=== PATIENT | female | born 1995 | race American Indian/Alaskan Native ===

== ENCOUNTER 2016-06-12 14:43 | Emergency (ER) | payer MEDICAID ==
[2016-06-12 17:34] LABS: Hematocrit 36.8 % (30.3-42.9); Mean Corpuscular HGB Conc 33 % (30-34); Mean Corpuscular Hemoglobin 30 pg (28-32); Mean Corpuscular Volume 93 fl (79-97); Platelet Count 373 K/mm3 (140-440); Red Blood Count 3.98 M/mm3 (3.65-5.03); Red Cell Distribution Width 13.2 % (13.2-15.2); White Blood Count 11.5 K/mm3 (4.5-11.0)
[2016-06-12 17:35] LABS: Anion Gap 22 mmol/L; Blood Urea Nitrogen 11 mg/dL (7-17); Calcium 8.7 mg/dL (8.4-10.2); Carbon Dioxide 19 mmol/L (22-30); Chloride 97.9 mmol/L (98-107); Glucose 79 mg/dL (65-100); Sodium 135 mmol/L (137-145)
[2016-06-12 18:02] LABS: Bacteria,Urine 1+ /HPF (Negative); Bilirubin,Urine NEG (Negative); Blood,Urine NEG (Negative); Ketones,Urine 80 mg/dL (Negative); Leukocyte Esterase,Urine LG (Negative); Mucus,Urine 3+ /HPF; Nitrite,Urine NEG (Negative); Urobilinogen,Urine < 2.0 mg/dL (<2.0)
[2016-06-12 19:37] LABS: Anisocytosis 1+; Basophils % (Manual) 0 % (0.0-1.8); Blastocytes % (Manual) 0 %; Diff Status Complete; Eosinophils % (Manual) 0 % (0.0-4.3); Platelet Estimate Consistent w Auto
--- NOTE | 2016-06-12 21:21 | Ultrasound Report ---
FINAL REPORT EXAM: US OB \T\gt; = 14 WEEKS FETUS HISTORY: abd pain, preg COMPARISON: None available. TECHNIQUE: Several real-time grayscale and color Doppler images were obtained. FINDINGS: Single live IUP. Estimated gestational age 14 weeks 3 days. Estimated delivery date December 08, 2016. heart rate 176 beats per minute. BPD 14 weeks 4 days. Head circumference 14 weeks 4 days. Abdominal circumference 14 weeks 0 days. Femoral length 14 weeks 4 days. position vertex. Placenta location anterior. No placenta previa. The cervix is closed and measures 3.3 centimeters in length. Limited evaluation of structures due to early gestational age. IMPRESSION: Single live IUP. Estimated gestational age 14 weeks 3 days. Estimated delivery date December 08, 2016. Limited evaluation of structures due to early gestational age. No gross or placental abnormality demonstrated.
[2016-06-12] MEDS ORDERED: ZOFRAN IV ONE (22:01)
[2016-06-12] MEDS ORDERED: NACL 0.9% 1000 ML 1,000 ML IV ONE ×2 (22:01)
[2016-06-12] MEDS ORDERED: ROCEPHIN/NS 1 GM/50 ML 1 GM/50 ML BAG IV ONE (22:01)
--- NOTE | 2016-06-12 22:31 | Emergency Department Report ---
HPI - General Chief Complaint: Abdominal Pain Time Seen by Provider: 06/12/16 21:53 - HPI HPI: Room 26 The patient is a 20-year-old female presenting with chief complaint of abdominal pain nausea vomiting diarrhea. The patient is brought 14 weeks states that her symptoms began this morning at 11:00. The patient states she has suprapubic pain. The pain bilateral sides of her abdomen. Patient denies dysuria, hematuria or vaginal bleeding. The patient describes the pain as sharp and cramping in nature. Patient denies history of fever. The patient states her last meal included possible she ingested this Hospital for the full course of her symptoms. The patient admits to nausea vomiting and diarrhea for 1 day. When asked how she is feeling currently the patient replies "alright." Location: [see above] Duration: [see above] Quality: Sharp/Cramping Severity: Moderate Modifying factors: [see above] Context: [see above] Mode of transportation: [not driving] ED Past Medical Hx - Past Medical History Previous Medical History?: No - Surgical History Past Surgical History?: No - Family History Family history: no significant - Social History Smoking Status: Never Smoker Substance Use Type: None - Medications Home Medications: Home Medications Medication Instructions Recorded Confirmed Last Taken Type Nitrofurantoin [place]/M-Cryst 100 mg PO Q12HR #14 capsule 06/12/16 Unknown Rx [Macrobid CAP] ED Review of Systems ROS: Stated complaint: ABD PAIN/14WKS Other details as noted in HPI Comment: All other systems reviewed and negative Constitutional: denies: chills, fever Eyes: denies: eye pain, eye discharge, vision change ENT: denies: ear pain, throat pain Respiratory: denies: cough, shortness of breath, wheezing Cardiovascular: denies: chest pain, palpitations Endocrine: no symptoms reported Gastrointestinal: abdominal pain, nausea, vomiting, diarrhea Genitourinary: denies: urgency, dysuria, discharge Musculoskeletal: denies: back pain, joint swelling, arthralgia Skin: denies: rash, lesions Neurological: denies: headache, weakness, paresthesias Psychiatric: denies: anxiety, depression Hematological/Lymphatic: denies: easy bleeding, easy bruising Physical Exam - Physical Exam Vital Signs: Vital Signs 06/12/16 16:22 Temperature 98.5 F Pulse Rate 92 H Respiratory 20 Rate Blood Pressure 104/56 O2 Sat by Pulse 97 Oximetry Physical Exam: GENERAL: The patient is well-developed well-nourished female lying on stretcher not appearing to be in acute distress. [] HEENT: Normocephalic. Atraumatic. Extraocular motions are intact. NECK: Supple. No meningitic signs are noted. There is no adenopathy noted. CHEST/LUNGS: Clear to auscultation. There is no respiratory distress noted. HEART/CARDIOVASCULAR: Regular. There is no tachycardia. There is no gallop rub or murmur. ABDOMEN: Abdomen is soft, with mild suprapubic discomfort to palpation. Patient has normal bowel sounds. SKIN: There is no rash. There is no edema. There is no diaphoresis. NEURO: The patient is awake, alert, and oriented. The patient is cooperative. The patient has normal speech MUSCULOSKELETAL: There is no CVA tenderness. There is no evidence of acute injury. ED Course Vital Signs 06/12/16 16:22 Temperature 98.5 F Pulse Rate 92 H Respiratory 20 Rate Blood Pressure 104/56 O2 Sat by Pulse 97 Oximetry ED Medical Decision Making - Lab Data Result diagrams: 06/12/16 17:05 06/12/16 17:05 Laboratory Tests 06/12/16 06/12/16 06/12/16 17:05 17:05 17:32 WBC 11.5 H RBC 3.98 Hgb 12.0 Hct 36.8 MCV 93 MCH 30 MCHC 33 RDW 13.2 Plt Count 373 Add Manual Diff Complete Total Counted 100 Seg Neutrophils % Coroner Seg Neuts % (Manual) 92.0 H Band Neutrophils % 0 Lymphocytes % (Manual) 4.0 L Reactive Lymphs % (Man) 0 Monocytes % (Manual) 4.0 Eosinophils % (Manual) 0 Basophils % (Manual) 0 Metamyelocytes % 0 Myelocytes % 0 Promyelocytes % 0 Blast Cells % 0 Nucleated RBC % Not Reportable Seg Neutrophils # Man 10.6 H Band Neutrophils # 0.0 Lymphocytes # (Manual) 0.5 L Abs React Lymphs (Man) 0.0 Monocytes # (Manual) 0.5 Eosinophils # (Manual) 0.0 Basophils # (Manual) 0.0 Metamyelocytes # 0.0 Myelocytes # 0.0 Promyelocytes # 0.0 Blast Cells # 0.0 WBC Morphology Not Reportable Hypersegmented Neuts Not Reportable Hyposegmented Neuts Not Reportable Hypogranular Neuts Not Reportable Smudge Cells Not Reportable Toxic Granulation Not Reportable Toxic Vacuolation Not Reportable Dohle Bodies Not Reportable Pelger-Huet Anomaly Not Reportable Wagner Rods Not Reportable Platelet Estimate Consistent w auto Clumped Platelets Not Reportable Plt Clumps, EDTA Not Reportable Large Platelets Not Reportable Giant Platelets Not Reportable Platelet Satelliting Not Reportable Plt Morphology Comment Not Reportable RBC Morphology Not Reportable Dimorphic RBCs Not Reportable Polychromasia Not Reportable Hypochromasia Not Reportable Poikilocytosis Not Reportable Anisocytosis 1+ Microcytosis Not Reportable Macrocytosis Not Reportable Spherocytes Not Reportable Pappenheimer Bodies Not Reportable Sickle Cells Not Reportable Target Cells Not Reportable Tear Drop Cells Not Reportable Ovalocytes Not Reportable Helmet Cells Not Reportable [place] Bodies Not Reportable [place] Rings Not Reportable Fabian Cells Not Reportable Bite Cells Not Reportable Crenated Cell Not Reportable Elliptocytes Not Reportable Acanthocytes (Spur) Not Reportable Rouleaux Not Reportable Hemoglobin C Crystals Not Reportable Schistocytes Not Reportable Malaria parasites Not Reportable Jaime Bodies Not Reportable Hem Pathologist Commnt No Sodium 135 L Potassium 4.0 Chloride 97.9 L Carbon Dioxide 19 L Anion Gap 22 BUN 11 Creatinine 0.5 L Estimated GFR > 60 BUN/Creatinine Ratio 22.00 Glucose 79 Calcium 8.7 Urine Color Yellow Urine Turbidity Slightly-cloudy Urine pH 5.0 Ur Specific [place] 1.029 Urine Protein 100 mg/dl Urine Glucose (UA) Neg Urine Ketones 80 Urine Blood Neg Urine Nitrite Neg Urine Bilirubin Neg Urine Urobilinogen < 2.0 Ur Leukocyte Esterase Lg Urine WBC (Auto) 23.0 H Urine RBC (Auto) 3.0 U Epithel Cells (Auto) 16.0 H Urine Bacteria (Auto) 1+ Urine Mucus 3+ - Radiology Data Radiology results: image reviewed (pelvic ultrasound) interpreted by me: Pelvic ultrasound (read by radiologist)-single live IUP. Estimated gestational age 14 weeks 3 days. EDC 12/08/2016. Limited evaluation of structures due to early gestational age. No gross or placental upper matheus demonstrated. - Differential Diagnosis hyperemesis gravidarum, UTI, gastroenteritis Critical care attestation.: If time is entered above; I have spent that time in minutes in the direct care of this critically ill patient, excluding procedure time. ED Disposition Clinical Impression: UTI (urinary tract infection), Nausea vomiting and diarrhea, Disposition: DISCHARGED TO HOME OR SELFCARE Is pt being admited?: No Does the pt Need Aspirin: No Condition: Stable Instructions: Abdominal Pain (ED), Acute Nausea and Vomiting (ED), Urinary Tract Infection in Women (ED) Additional Instructions: Return to the emergency department immediately should you develop worsening symptoms, fever, inability to tolerate food or liquid or any other concerns. Prescriptions: Nitrofurantoin [place]/M-Cryst [Macrobid CAP] 100 mg PO Q12HR #14 capsule Referrals: PRIMARY CARE, [Primary Care Provider] - 3-5 Days your [facility] [Other] - 3-5 Days Time of Disposition: 22:36 (DC after IV fluids and meds)
[2016-06-13 01:46] VITALS: BP 120/74
== END 2016-06-13 00:20 | disposition home or self-care (01) ==
LOC: ED 14:43
DX: O23.42 Unspecified infection of urinary tract in pregnancy, second trimester (principal); O26.892 Other specified pregnancy related conditions, second trimester; R19.7 Diarrhea, unspecified; Z3A.14 14 weeks gestation of pregnancy; Z79.899 Other long term (current) drug therapy
CPT/HCPCS: 36415; 76805; 80048; 81001; 85007; 85025; 96365; 96375; 99284; J0696; J2405; J7030